=== PATIENT | male | born 1940 | race Caucasian/White ===

== ENCOUNTER → 2020-04-03 11:43 | Outpatient (CLI) | payer MEDICARE, OTHER, SELFPAY ==
--- NOTE | 2020-04-03 | DI.ECHO.S_ITS ---
[facility] +---------+ : : [address] : [place] : : : : [id number] : : : : Phone: [phone]+ Echocardiogram Report + + :Name: LIBERTAD DILLARD Study Date: 04/03/2020 Height: 73 in : :[facility] Weight: 210 lb : : Gender: Male BSA: 2.2 m2 : :: 1940 Age: 79 yrs BP: 145/90 mmHg: :Reason For Study: DYSPNEA : :Ordering Physician: LETICIA, : :NATIVIDAD Light Performed By: Coretta Guzman : :Referring: NATIVIDAD KELLY : + + Interpretation Summary Normal sinus rhythm. Normal LV size and wall thickness; normal wall motion and LV systolic function. EF is 60-65%. Mild MAC; aortic sclerosis without stenosis; otherwise no valvular abnormalities. No prior study available for comparison. Procedure: A two-dimensional transthoracic echocardiogram with color flow and Doppler was performed. The study quality was technically adequate. There is no prior echocardiogram noted for this patient. The patient was in sinus rhythm with heart rates between 65-73 bpm during the exam. Left Ventricle: The left ventricle is normal in size and wall thickness. The ejection fraction is estimated to be 60-65%. Diastolic parameters suggest probable normal left ventricular diastolic function and normal filling pressures. Right Ventricle: The right ventricle is normal in size and function. Atria: Both atria are normal in size. There is no Doppler evidence for an interatrial shunt. Mitral Valve: The mitral valve is normal in structure and function. There is mild mitral annular calcification. There is trace mitral regurgitation. Aortic Valve: The aortic valve is trileaflet. The aortic valve is slightly calcified. There is no aortic valve stenosis. No aortic regurgitation is present. Tricuspid Valve: The tricuspid valve is normal in structure and function. The right ventricular systolic pressure is estimated to be at least 25 mmHg based on an estimated right atrial pressure of 3 mm Hg. There is mild tricuspid regurgitation. Pulmonic Valve: The pulmonic valve is not well visualized. There is no pulmonic valvular regurgitation. Great Vessels: The aortic root is normal size. The ascending aorta is mildly enlarged. The IVC is of normal diameter and collapses greater than 50% with a sniff. This suggests a low right atrial pressure of 3 mm Hg. Pericardium/ Pleura There is no pericardial effusion. There is no pleural effusion. MMode/2D Measurements & Calculations LVIDd: 5.4 cm LVOT diam: 2.4 cm LVIDs: 3.4 cm Ao root diam: 3.8 cm FS: 36.0 % asc Aorta Diam: 3.5 cm EPSS: 1.4 cm Ao Arch Diam (Prox Trans): 2.7 cm IVSd: 1.1 cm LVPWd: 0.80 cm LV sinclair. diameter/BSA (cm/m^2): 2.4 LV sys. diameter/BSA (cm/m^2): 1.6 LA A2 area: 19.4 cm2 RA long axis: 4.7 cm LA A4 area: 15.8 cm2 RA area: 13.8 cm2 LA length (vol): 4.7 cm RA vol: 35.0 ml LA vol: 55.4 ml RA : 15.9 ml/m2 LA vol index: 25.2 ml/m2 IVC diam: 0.91 cm RVD1 (basal): 4.0 cm TAPSE: 1.8 cm Doppler Measurements & Calculations Ao V2 max: 155.3 cm/sec LVOT Max Weston: 85.1 cm/sec Ao V2 mean: 96.4 cm/sec LV V1 max P.9 mmHg Ao max P.7 mmHg LV V1 VTI: 16.0 cm Ao mean P.6 mmHg MIKE(I,D): 2.6 cm2 Ao V2 VTI: 27.9 cm MIKE(V,D): 2.4 cm2 sev ratio: 0.57 MIKE indexed to BSA (cm^2/m^2): 1.2 MV E max weston: 50.9 cm/sec TR max weston: 235.5 cm/sec MV A max weston: 65.4 cm/sec TR max P.2 mmHg MV E/A: 0.78 PA V2 max: 78.2 cm/sec Med Peak E' Weston: 9.8 cm/sec PA V2 mean: 48.7 cm/sec E/E' med: 5.2 PA mean P.2 mmHg Lat Peak E' Weston: 10.6 cm/sec PA pr(Accel): 32.8 mmHg E/E' lat: 4.8 E/e' average: 5.0 MV dec time: 0.18 sec SV(LVOT): 71.2 ml Electronically signed by: Doris Cope M.D. on Reading Physician:04/04/2020 09:34 AM
--- NOTE | 2020-04-05 16:28 | PM.PFT.1 ---
Pulmonary Function Test Referral & Results Date Patient Seen: 04/03/20 Requesting provider: Chastity Martinez Results: The spirometry demonstrates an FVC of 4.25 L which is 92% of predicted. The FEV1 was measured at 3.04 L which is 92% of predicted. The FEV1/FVC ratio was 72 which is 99% of predicted. No bronchodilator was administered. Lung volumes show an SVC of 4.37 L which is 89% of predicted. The diffusing capacity was measured at 37.21 which is 102% of predicted. The maximum voluntary ventilation was normal Interpretation: This study demonstrates probably normal pulmonary function. The may be very minimal obstructive lung disease based on minimal reduction in FEV1.
== END ==
PROVIDERS: PCP Family Medicine; Referring Provider Family Medicine; Visit Provider Family Medicine
DX: R06.09 Other forms of dyspnea (principal); J98.8 Other specified respiratory disorders; Z87.891 Personal history of nicotine dependence
CPT/HCPCS: 93306; 94010; 94726; 94729

== ENCOUNTER → 2023-01-29 08:03 | Outpatient (CLI) | payer MEDICARE, OTHER, SELFPAY | PROVIDERS: Family Provider Student in an Organized Health Care Education/Training Program; PCP Student in an Organized Health Care Education/Training Program; Referring Provider Student in an Organized Health Care Education/Training Program; Visit Provider Student in an Organized Health Care Education/Training Program | DX: G56.02 Carpal tunnel syndrome, left upper limb (principal) | CPT/HCPCS: 95885; 95886; 95913 ==